=== PATIENT | female | born 1935 | race Caucasian/White ===

== ENCOUNTER 2017-03-15 17:23 | Emergency (ER) | payer OTHER ==
[~2017-03-15] VITALS: Ht 167.6 cm; Wt 72.6 kg
[2017-03-15 18:00] LABS: BASOPHILS ABSOLUTE AUTO 0.02 K/mm3 (0.00-0.23); BASOPHILS PERCENT AUTO 0 % (0-2); EOSINOPHILS ABSOLUTE AUTO 0.12 K/mm3 (0.00-0.68); EOSINOPHILS PERCENT AUTO 2 % (0-6); Hematocrit 36.7 % (33.0-51.0); Hemoglobin 12.6 g/dL (11.5-16.0); IMMATURE GRAN ABSOLUTE AUTO 0.02 K/mm3 (0.00-0.10); IMMATURE GRAN PERCENT AUTO 0 % (0-1); LYMPHOCYTES ABSOLUTE AUTO 2.08 K/mm3 (0.84-5.20); LYMPHOCYTES PERCENT AUTO 31 % (21-46); MONOCYTES ABSOLUTE AUTO 0.65 K/mm3 (0.16-1.47); MONOCYTES PERCENT AUTO 10 % (4-13); Mean Corpuscular HGB 31.2 pg (26.0-34.0); Mean Corpuscular HGB Conc 34.3 g/dL (31.5-36.5); Mean Corpuscular Volume 91 fL (80-100); Mean Platelet Volume 10.2 fL (9.1-12.4); NEUTROPHILS ABSOLUTE AUTO 3.79 K/mm3 (1.96-9.15); NEUTROPHILS PERCENT AUTO 57 % (41-73); Platelet Count 184 K/mm3 (150-400); RDW Coefficient Variation 12.8 % (11.7-14.2); Red Blood Cell Count 4.04 M/mm3 (3.80-5.20); White Blood Cell Count 6.68 K/mm3 (4.00-11.30)
[2017-03-15 18:21] LABS: Alanine Aminotransfer (ALT/SGP 43 U/L (12-78); Albumin, Blood 3.1 g/dL (3.4-5.0); Albumin/Globulin Ratio 0.8 (0.8-1.8); Alk Phos 78 U/L (50-136); Anion Gap 9 mmol/L (6-16); Aspartate Aminotrans (AST/SGOT 33 U/L (12-37); Bilirubin, Total 0.8 mg/dL (0.1-1.0); Blood Urea Nitrogen 17 mg/dL (8-24); Bun/Creatinine Ratio 25.8 (12.0-20.0); CO2, Blood 24 mmol/L (21-32); Calcium, Blood 8.6 mg/dL (8.5-10.1); Chloride, Blood 109 mmol/L (98-108); Creatinine, Blood 0.66 mg/dL (0.40-1.00); Globulin, Blood 3.7 g/dL (2.2-4.0); Glomerular Filtration Rate >60 (60-); Glucose, Blood 144 mg/dL (70-99); Potassium, Blood 3.9 mmol/L (3.5-5.5); Sodium, Blood 142 mmol/L (136-145); Total Protein, Blood 6.8 g/dL (6.4-8.2)
[2017-03-15 18:45] LABS: Source, Urine Clean Catch
[2017-03-15 18:53] LABS: Appearance, Urine Clear (Clear); Bacteria Mod /hpf; Bilirubin, Urine Neg (Neg); Blood, Urine 1+ (Neg); Color, Urine Yellow (P-Yellow); Glucose Qualitative, Urine Neg (Neg); Ketones, Urine 1+ (Neg); Leukocyte Esterase, Urine 3+ (Neg); Mucus Mod (0-Heavy); Nitrite, Urine Neg (Neg); Protein, Urine 1+ (Neg); Red Blood Cells, Urine 0-2 /hpf (0-2); Specific Gravity, Urine 1.025 (1.003-1.022); Squamous Epithelial Cells Few /hpf (Few); Urobilinogen, Urine 1+ (Normal)
[2017-03-15] MEDS ORDERED: ALBU90OI INH (20:43)
[2017-03-15] MEDS ORDERED: PRED20 PO (20:43)
[2017-11-21] MEDS ORDERED: ASPI81CH PO (11:53)
[2017-11-21] MEDS ORDERED: CEPH500 PO (11:53)
== END 2017-03-15 20:55 | disposition home or self-care (01) ==
LOC: ER 17:23
PROVIDERS: Psychiatry & Neurology Psychiatry
DX: J40 Bronchitis, not specified as acute or chronic (principal); I10 Essential (primary) hypertension; E03.9 Hypothyroidism, unspecified; Z79.899 Other long term (current) drug therapy; Z90.49 Acquired absence of other specified parts of digestive tract
CPT/HCPCS: 36415; 71046; 80053; 81001; 83690; 85025; 87086; 94640; 99283

== ENCOUNTER 2020-07-15 17:24 | Emergency (ER) | payer OTHER ==
[~2020-07-15] VITALS: Ht 154.9 cm; Wt 68.0 kg
[~2020-07-15 17:24] MED LIST: ALBU90OI INH; ASPI81CH PO; CEPH500 PO; PRED20 PO
== END 2020-07-15 19:12 | disposition home or self-care (01) ==
LOC: ER 17:24
DX: S09.90XA Unspecified injury of head, initial encounter (principal); E03.9 Hypothyroidism, unspecified; I10 Essential (primary) hypertension; Z79.82 Long term (current) use of aspirin; W54.1XXA Struck by dog, initial encounter
CPT/HCPCS: 70450; 99283-25

== ENCOUNTER → 2020-09-17 | Outpatient (CLI) | payer OTHER | END | disposition home or self-care (01) | LOC: LAB SHORT 13:18 → LAB 13:18 | DX: N39.0 Urinary tract infection, site not specified (principal) | CPT/HCPCS: 87077; 87086; 87186 ==

== ENCOUNTER → 2020-10-01 | Outpatient (CLI) | payer OTHER | END | disposition home or self-care (01) | LOC: LAB 11:29 → LAB SHORT 11:29 | DX: N39.0 Urinary tract infection, site not specified (principal) | CPT/HCPCS: 87077; 87086; 87186 ==

== ENCOUNTER 2022-09-09 07:10 | Day surgery (SDC) | payer OTHER ==
[~2022-09-09] VITALS: Ht 157.5 cm; Wt 63.0 kg
[2022-09-09] MEDS ORDERED: POTCHL20ER PO (07:43)
[2022-09-09] MEDS ORDERED: EUTHYROX50 MCG PO (07:44)
[2022-09-09] MEDS ORDERED: Prinivil10 MG PO (07:44)
--- NOTE | 2022-09-09 08:54 | NUR ---
09/09/22 0854 Jia Cazares PATIENT NEEDED SCREED OPERATOR SERVICES IN OPERATING ROOM. CALLED AND HAD A EQUATORIAL GUINEAN SCREED OPERATOR ON THE PHONE DURING SURGERY PER . PT DID SIGN DECLINATION OF SCREED OPERATOR SERVICES FOR PRE OP AREA BECUASE DAUGHTER WAS ABLE TO SCREED OPERATOR.
[2022-09-09 09:10] VITALS: BP 132/70
== END 2022-09-09 09:38 | disposition home or self-care (01) ==
LOC: ORSCSDS 07:10
PROVIDERS: Student in an Organized Health Care Education/Training Program
PROC: 08RK3JZ Replacement of Left Lens with Synthetic Substitute, Percutaneous Approach (ICD-10-PCS; principal; 2022-09-09 08:30)
DX: H25.13 Age-related nuclear cataract, bilateral (principal); H21.81 Floppy iris syndrome; I10 Essential (primary) hypertension; E03.9 Hypothyroidism, unspecified; Z79.899 Other long term (current) drug therapy
CPT/HCPCS: J2250; J3010; J3301; J7040; V2632

== ENCOUNTER 2022-09-23 08:47 | Day surgery (SDC) | payer OTHER ==
[~2022-09-23] VITALS: Ht 154.9 cm; Wt 66.0 kg
[~2022-09-23 08:47] MED LIST changes: +EUTHYROX50 MCG PO; +POTCHL20ER PO; +Prinivil10 MG PO
--- NOTE | 2022-09-23 09:17 | NUR ---
09/23/22 0917 Evelyn Chowdhury AT 0913 PLESAUR[place]HET AT 0914
[2022-09-23 10:30] VITALS: BP 127/70
--- NOTE | 2022-09-23 10:58 | NUR ---
09/23/22 1058 Wilfredo Cueva IV REMOVED INTACT. SITE WNL.
== END 2022-09-23 10:55 | disposition home or self-care (01) ==
LOC: ORSCSDS 08:47
PROVIDERS: Student in an Organized Health Care Education/Training Program
PROC: 08RJ3JZ Replacement of Right Lens with Synthetic Substitute, Percutaneous Approach (ICD-10-PCS; principal; 2022-09-23 10:00)
DX: H25.11 Age-related nuclear cataract, right eye (principal); Z96.1 Presence of intraocular lens; I10 Essential (primary) hypertension; E03.9 Hypothyroidism, unspecified; Z79.899 Other long term (current) drug therapy
CPT/HCPCS: J2001; J2250; J3010; J7040; V2632

== ENCOUNTER 2024-05-18 11:34 | Day surgery (SDC) | payer OTHER ==
[~2024-05-18] VITALS: Ht 157.5 cm; Wt 76.5 kg
[~2024-05-18 11:34] MED LIST changes: +Lactated Ringer's 1,000 ML IV ONE
[2024-05-18] MEDS ORDERED: Midazolam HCl 1MG / ML 2ML Vial ONE (12:08)
[2024-05-18] MEDS ORDERED: propofoL 20 ML IV ONE (12:08)
[2024-05-18] MEDS ORDERED: HYDCHL25 PO (12:09)
[2024-05-18] MEDS ORDERED: GABA300 PO (12:10)
[2024-05-18] MEDS ORDERED: Lactated Ringer's 1,000 ML IV ONE (12:15)
--- NOTE | 2024-05-18 12:29 | NUR ---
05/18/24 1228 JESSE GTZ PT WAS VERY COLD WHEN ENTER PREOP. BEAR HUGGER USED TO HELP HER WARM UP. SHE IS FEELING MUCH MORE COMFORTABLE. MONITORING HER COMFORT
[2024-05-18] MEDS ORDERED: NS 500 ML IV ONE (13:01)
--- NOTE | 2024-05-18 13:03 | NUR ---
05/18/24 1303 Marissa Hernandez PT TO [facility], DROWSY BUT AROUSABLE TO VERBAL STIMULI
[2024-05-18 13:18] VITALS: BP 128/61
== END 2024-05-18 14:10 | disposition home or self-care (01) ==
LOC: ORSCSDS 11:34
PROVIDERS: Orthopaedic Surgery
PROC: 01N54ZZ Release Median Nerve, Percutaneous Endoscopic Approach (ICD-10-PCS; principal; 2024-05-18 13:15)
DX: G56.03 Carpal tunnel syndrome, bilateral upper limbs (principal); I10 Essential (primary) hypertension; Z86.73 Personal history of transient ischemic attack (TIA), and cerebral infarction without residual deficits; Z79.899 Other long term (current) drug therapy
CPT/HCPCS: J2250; J2704; J7120

== ENCOUNTER 2024-06-22 12:13 | Day surgery (SDC) | payer OTHER ==
[~2024-06-22] VITALS: Ht 157.5 cm; Wt 78.1 kg
[~2024-06-22 12:13] MED LIST changes: +GABA300 PO; +HYDCHL25 PO; +Midazolam HCl 1MG / ML 2ML Vial ONE
[2024-06-22] MEDS ORDERED: Dexamethasone Sod Phos 10 MG/ML 1ML VIAL ONE (12:14)
[2024-06-22] MEDS ORDERED: FentaNYL Citrate 50 MCG/ML 2 ML Injection ONE (12:14)
[2024-06-22] MEDS ORDERED: Ondansetron HCl 2 MG / ML 2ML Vial ONE (12:14)
[2024-06-22] MEDS ORDERED: IBUP200 (12:48)
[2024-06-22] MEDS ORDERED: ACET500 (12:48)
[2024-06-22] MEDS ORDERED: Lactated Ringer's 1,000 ML IV ONE (12:59)
--- NOTE | 2024-06-22 13:06 | NUR ---
06/22/24 [facility]6 KellyMilad stanley TIME OUT WITH DR FELTON.
--- NOTE | 2024-06-22 13:40 | NUR ---
06/22/24 1340 Marissa Hernandez REPORT GIVEN TO MIKE MERA
[2024-06-22 14:16] VITALS: BP 135/67
== END 2024-06-22 14:29 | disposition home or self-care (01) ==
LOC: ORSCSDS 12:13
PROVIDERS: Orthopaedic Surgery
PROC: 01N54ZZ Release Median Nerve, Percutaneous Endoscopic Approach (ICD-10-PCS; principal; 2024-06-22 13:45)
DX: G56.01 Carpal tunnel syndrome, right upper limb (principal); I10 Essential (primary) hypertension; E07.9 Disorder of thyroid, unspecified; Z79.899 Other long term (current) drug therapy
CPT/HCPCS: J1100; J2250; J2405; J3010; J7120